=== PATIENT | female | born 1995 | race Caucasian/White ===

== ENCOUNTER 2023-07-25 12:51 | Emergency (ER) | payer OTHER, SELFPAY ==
[2023-07-25 12:59] VITALS: BP 110/74
[2023-07-25] MEDS: NSS 1000 IV (14:18)
[2023-07-25] MEDS: PEPCID 20 MG IV (14:18)
[2023-07-25 14:22] VITALS: BMI 18.1
[2023-07-25] MEDS: HALDOL 1 MG IV ×2 (14:29→16:55)
[2023-07-25 14:30] LABS: % Basophils 0.4 % (0-2); % Eosinophils 0.1 % (0-6); % Immature Granulocytes 0.4 % (0-0.5); % Lymphocytes 7.4 % (20.5-51.1); % Monocytes 2.9 % (1.7-9.3); % Neutrophils 88.8 % (42.2-75.2); Absolute Basophils 0.1 10^3/uL (0-0.2); Absolute Immature Granulocytes 0.1 10^3/uL (0-0.05); Absolute Monocytes 0.4 10^3/uL (0.1-0.6); Absolute Neutrophils 11.7 10^3/uL (1.4-6.5); Hematocrit 39.5 % (37.0-47.0); Hemoglobin 13.9 g/dL (12.0-16.0); Mean Corp Hgb Conc. 35.2 g/dL (33.0-37.0); Mean Platelet Volume 9.8 fL (7.4-10.4); Nucleated Red Blood Cells % 0 %; Platelet Count 301 10^3/uL (130-400); Red Blood Cell Count 4.34 10^6/uL (4.20-5.40); Red Cell Dist. Width 12.9 % (11.5-14.5); White Blood Cell Count 13.2 10^3/uL (4.8-10.8)
[2023-07-25 14:36] VITALS: BP 101/46
[2023-07-25 14:41] LABS: ALT (SGPT) 22 U/L (0-35); AST (SGOT) 22 U/L (14-36); Albumin 4.8 g/dl (3.5-5.0); Alkaline Phosphatase 65 U/L (38-126); Blood Urea Nitrogen 20 mg/dl (7-17); Carbon Dioxide 17 mmol/L (22-30); Chloride 110 mmol/L (98-107); Estimated Creatinine Clearance 104 ml/min; Glucose 111 mg/dl (70-99); Lactic Acid 1.4 mmol/L (0.7-2.0); Lipase 49 U/L (23-300); Potassium 3.9 mmol/L (3.5-5.1); Sodium 140 mmol/L (135-145); Total Bilirubin 0.8 mg/dl (0.2-1.3); Total Protein 7.7 g/dl (6.3-8.2); eGFR > 60.00
[2023-07-25 15:00] VITALS: BP 102/54
[2023-07-25 15:02] LABS: HCG, Serum Qualitative Screen Negative
--- NOTE | 2023-07-25 15:15 | ED.GENMED ---
History of Present Illness
General
Chief Complaint: Abdominal Pain
Source: patient
Exam Limitations: none
Time Seen by Provider: 07/25/23 13:32
Nursing documentation reviewed up to this point in time: agreed with
Travel History
Have you had any contact with someone who has COVID-19?: No
Do you have any symptoms of coronavirus? Fever > 100 degrees, chills, cough, shortness of breath, sore throat, loss of taste or smell, muscle aches, or headache?: No
History of Present Illness
History of Present Illness:
27-year-old female with past medical history of GERD anxiety presenting to the emergency department today with concerns of abdominal pain diffuse with vomiting over the past 3 days has been here several times for similar symptoms in the past.
Previously had an ovarian cyst with previous ultrasound. Denies any fevers changes in urination or changes in bowel movements.
Past History
Past History
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
ED Past Surgical History: Appendectomy
Social History
Tobacco: Smoker
Alcohol: Binge drinker
Drug: Marijuana
Personal: Single
Living: with family
Employment: Not employed
Family History
Family History: Other (Noncontributory)
Review of Systems
Review of Systems
Allergies reviewed?: Yes
All Other Systems: ROS reviewed and negative except as documented in HPI and ROS
Phy Exam
Physical Exam
Physical Exam:
GENERAL: Alert , in no apparent distress
EYE: pupils equal and reactive
NECK: Supple, no significant adenopathy.
ENT: o/p clr, mmm.
CARDIAC: Regular rate and rhythm .
LUNGS: Clear breath sounds bilaterally, no acute respiratory distress, no wheezes/rales/rhonchi
ABDOMEN: Vague diffuse abdominal pain no specific focal tenderness no peritoneal signs no guarding
NEUROLOGICAL: Alert and oriented, no focal neuro deficits
SKIN: Warm and dry, skin intact.
MUSCULOSKELETAL: No edema, well perfused.
PSYCH: Normal and appropriate interaction.
Course
Orders/Labs/Results
Orders:
Orders
07/25/23 13:42
CT Abd/Pel (IV only)-DH only Urgent
Comment:
Reason For Exam: diffuse abd pain vomiting
0.9% Sodium Chloride 1000 ml [Nss] 1,000 ml IV BOLUS
Famotidine [Pepcid] 20 mg IV NOW STA
Haloperidol Lactate [Haldol] 1 mg IV NOW STA
07/25/23 14:10
Complete Blood Count/With Diff Urgent
Comprehensive Metabolic Panel Urgent
HCG, Serum Qualitative Screen Urgent
Comment: ADD-ON
Lactic Acid Urgent
Lipase Urgent
07/25/23 14:33
Electrocardiogram (*1) Urgent
Reason for Study: QTc Monitoring
EKG- Treatment ONCE
07/25/23 14:49
Add On- LAB Urgent
Tests Added?: hcg
07/25/23 16:08
Haloperidol Lactate [Haldol] 1 mg IV NOW STA
Ondansetron Injectable [Zofran] 4 mg IV NOW STA
07/25/23 17:44
Urinalysis Reflex To Culture Urgent
Date Specimen was Collected: 07/25/23
Time Specimen was Collected: 16:49
Abnormal Lab Results
07/25/23
14:10
WBC 13.2 H 10^3/uL
(4.8-10.8)
MCH 32.0 H pg
(27.0-31.0)
Abs Immat Gran (auto) 0.1 H 10^3/uL
(0-0.05)
Absolute Neuts (auto) 11.7 H 10^3/uL
(1.4-6.5)
Absolute Lymphs (auto) 1.0 L 10^3/uL
(1.2-3.4)
Neutrophils % 88.8 H %
(42.2-75.2)
Lymphocytes % 7.4 L %
(20.5-51.1)
Chloride 110 H mmol/L
(98-107)
Carbon Dioxide 17 L mmol/L
(22-30)
BUN 20 H mg/dl
(7-17)
Creatinine 0.5 L mg/dL
(0.6-1.0)
Glucose 111 H mg/dl
(70-99)
07/25/23 14:10
07/25/23 14:10
Vital Signs
Initial and Last Documented VS:
Initial Vital Signs
Temp Pulse Resp BP Pulse Ox
98.0 F 120 16 110/74 98
07/25/23 12:59 07/25/23 12:59 07/25/23 12:59 07/25/23 12:59 07/25/23 12:59
Last Documented Vital Signs
Temp Pulse Resp BP Pulse Ox
98.6 F 108 16 108/56 98
07/25/23 17:55 07/25/23 17:55 07/25/23 17:55 07/25/23 17:55 07/25/23 17:55
MDM/Problems Addressed
MDM/Problems Addressed:
27-year-old female presenting to the emergency department today with concerns of diffuse abdominal pain vomiting over the past 3 days similar episodes many times in the past. Does consume marijuana daily initial heart rate elevated but improving
after receiving a liter of fluid otherwise vital signs are normal no fever has vague diffuse abdominal pain. Patient does admit to daily marijuana use concerning this was given Haldol did have some improvement of symptoms given fluids heart rate
improving into the 90s white blood cell count slightly elevated 13.2 otherwise labs showing findings consistent with likely dehydration was given a second liter additionally CT scan without emergent findings symptoms were controlled patient able to
tolerate by mouth. Concerning the patient stable for outpatient management advised close GI follow-up.
*Critical Care Note
Total Time (30-74mins, 75-104mins- exclusive of procedures): Not Applicable
ED Attending Note
-
Portions of this chart may have been created with voice recognition software.� Occasional wrong word or��sound alike� substitutions may have occurred due to the inherent limitations of voice recognition software.
Discharge Plan
Departure
Patient Disposition: Home (Routine Discharge)
Date of Disposition: 07/25/23
Time of Disposition: 18:20
Patient with high blood pressure during this ER visit?: No
Condition: Good
Covid-19: Not Applicable
Discharge Problem:
Abdominal pain, Vomiting
Instructions: Abdominal Pain
Prescriptions:
New
ondansetron 4 mg tablet,disintegrating
4 mg PO Q8H PRN (Reason: nausea and vomiting) Qty: 7 0RF
pantoprazole 20 mg tablet,delayed release (DR/EC)
20 mg PO BID 14 Days Qty: 28 0RF
No Action
ondansetron 4 mg tablet,disintegrating
4 mg PO TID PRN (Reason: nausea and vomiting) Qty: 20 0RF
Referrals:
Sheldon Chambers MD [Active] - Follow up in 5-7 days
NONE,* [Family Provider] -
Activity Restrictions/Additional Instructions:
You came to emergency department today with concerns of vomiting. No emergent findings here please follow closely with GI. return to the emergency department any worsening, new or concerning symptoms.
Interventions
Interventions:
*Risk Screen - Suicide Last Done: 07/25/23 14:20
*General Assessment Last Done: 07/25/23 14:20
*Neglect/Abuse Screening Last Done: 07/25/23 14:20
ED- Fall Risk Assessment Last Done: 07/25/23 14:20
*ED COVID-19 Vaccine History Last Done: 07/25/23 12:59
XB-Ycxdem-Zdlhzispxf Assessment Last Done: 07/25/23 14:30
[2023-07-25] MEDS: ZOFRAN 4 MG IV (16:54)
[2023-07-25 17:55] VITALS: BP 108/56
== END 2023-07-25 19:01 | disposition home or self-care (01) ==
LOC: EMR 12:51
PROVIDERS: Physician Assistant; EMERGENCY PHYSICIAN Emergency Medicine
DX: R10.9 Unspecified abdominal pain (principal); K21.9 Gastro-esophageal reflux disease without esophagitis; F41.9 Anxiety disorder, unspecified; R11.2 Nausea with vomiting, unspecified; F10.10 Alcohol abuse, uncomplicated; L40.9 Psoriasis, unspecified; F17.200 Nicotine dependence, unspecified, uncomplicated; Z79.899 Other long term (current) drug therapy; Z87.19 Personal history of other diseases of the digestive system; Z90.49 Acquired absence of other specified parts of digestive tract
CPT/HCPCS: 99284; 96374; 96375; 96376; 96361; 74177; 80053; 83605; 83690; 84703; 85025; 93005; Q9967

== ENCOUNTER → 2024-01-03 06:30 | Day surgery (SDC) | payer OTHER, SELFPAY | LOC: GI 06:30 | PROVIDERS: ATTENDING PHYSICIAN Internal Medicine Gastroenterology | DX: K31.89 Other diseases of stomach and duodenum (principal); R10.13 Epigastric pain; R68.81 Early satiety; R63.4 Abnormal weight loss; K29.50 Unspecified chronic gastritis without bleeding | CPT/HCPCS: 43239; 88305; 88342 ==

== ENCOUNTER → 2024-01-11 06:21 | Day surgery (SDC) | payer OTHER, SELFPAY | LOC: GI 06:21 | PROVIDERS: ATTENDING PHYSICIAN Internal Medicine Gastroenterology | DX: K64.8 Other hemorrhoids (principal); R63.4 Abnormal weight loss | CPT/HCPCS: 45378 ==

== ENCOUNTER 2024-03-17 00:39 | Emergency (ER) | payer OTHER, SELFPAY ==
[2024-03-17 00:47] VITALS: BP 121/82
--- NOTE | 2024-03-17 01:22 | ED.GENMED ---
History of Present Illness
General
Chief Complaint: Abdominal Symptoms
Source: patient
Exam Limitations: none
Time Seen by Provider: 03/17/24 01:08
Nursing documentation reviewed up to this point in time: agreed with
History of Present Illness
History of Present Illness:
Patient with history of chronic intermittent abdominal pain, of unknown etiology, presents to ED secondary to recurrent worsening abdominal pain associated with multiple episodes of nausea vomiting over the past 3 days. Patient has been evaluated
on multiple occasions for similar complaint, including GI evaluation over the summer, requiring endoscopy and colonoscopy, which were 'normal'. Patient was advised to follow-up with her primary care physician, including potential endocrinology
evaluation, but has not been able to do so, as there is currently waiting list to see her primary care physician. In the meantime, patient states that she has been dealing with ongoing intermittent abdominal pain on her own, with intermittent use
of Zofran for nausea sensation. Patient has had significant weight loss over the years. Abdominal pain described as crampy, nonradiating, without any alleviating or exacerbating factors. Denies fever or chills. Denies change in bowel habits.
Denies recent change in diet or medications. Patient also reports irregular menstrual cycle, which has also been chronic.
Past History
Past History
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
ED Past Surgical History: Appendectomy
Social History
Tobacco: Smoker
Alcohol: Binge drinker
Drug: Marijuana
Personal: Single
Living: with family
Employment: Not employed
Family History
Family History: Other (Noncontributory)
Review of Systems
Review of Systems
Allergies reviewed?: Yes
All Other Systems: ROS reviewed and negative except as documented in HPI and ROS
Constitutional: Reports no symptoms
EENT: Reports no symptoms
Respiratory: Reports no symptoms
Cardiac: Reports no symptoms
ABD/GI: Reports abdominal pain, nausea and vomiting; Denies diarrhea or constipated
: Reports no symptoms
Musculoskeletal: Reports no symptoms
Skin: Reports no symptoms
Neurological: Reports no symptoms
Phy Exam
Physical Exam
Physical Exam:
Physical Exam
General: mild distress, not acutely ill. afebrile. thin appearing.
Head: nc/at. eomi
Neck: supple. no meningeal signs.
Heart: s1/s2 regular rate and rhythm, no murmur. equal radial pulses.
Lungs: no acute respiratory distress. clear bilaterally
Abdomen: normal bowel sounds. not tender. no distention
Neuro: alert and oriented. no focal neurological deficits
Skin: no rash
Psychiatric: well kept. interactive and cooperative
Extremities: no edema. no calf tenderness.
Course
Orders/Labs/Results
Orders:
Orders
03/17/24 01:17
Ketorolac [Toradol] 15 mg IV NOW STA
Pantoprazole [Protonix IV] 40 mg IV NOW STA
Test Result ONCE
CR Obstruct Series W/pa Chest Urgent
Comment:
Reason For Exam: abdominal pain
03/17/24 01:18
0.9% Sodium Chloride 1000 ml [Nss] 1,000 ml IV BOLUS
03/17/24 01:33
Diphenhydramine [Benadryl] 12.5 mg IV NOW STA
Metoclopramide [Reglan] 10 mg IV NOW STA
03/17/24 01:34
Complete Blood Count/With Diff Urgent
Comprehensive Metabolic Panel Urgent
HCG, Serum Qualitative Screen Urgent
Lipase Urgent
Magnesium Urgent
TSH Urgent
Urinalysis Reflex To Culture Urgent
Date Specimen was Collected: 03/17/24
Time Specimen was Collected: 01:30
Urine Microscopic Reflex Cult Urgent
Abnormal Lab Results
03/17/24
01:34
RBC 4.07 L 10^6/uL
(4.20-5.40)
Hct 36.8 L %
(37.0-47.0)
MCH 31.9 H pg
(27.0-31.0)
Creatinine 0.5 L mg/dL
(0.6-1.0)
Urine Ketones Trace A
(Negative)
Urine Bilirubin 1+ A
(Negative)
Urine Urobilinogen 2+ A
(Neg - 1+)
Leukocyte Esterase Rfl Trace A
(Negative)
Urine RBC 3-6 A /HPF
(0-2)
Urine Bacteria (Reflex) Few A
(Negative)
03/17/24 01:34
03/17/24 01:34
Vital Signs
Initial and Last Documented VS:
Initial Vital Signs
Temp Pulse Resp BP Pulse Ox
98.1 F 107 18 121/82 99
03/17/24 00:47 03/17/24 00:47 03/17/24 00:47 03/17/24 00:47 03/17/24 00:47
Last Documented Vital Signs
Temp Pulse Resp BP Pulse Ox
98.1 F 77 18 93/56 97
03/17/24 00:47 03/17/24 03:00 03/17/24 00:47 03/17/24 03:00 03/17/24 03:00
MDM/Problems Addressed
MDM/Problems Addressed:
Patient reports mild improvement symptoms after treatment. Patient remains otherwise afebrile, hemodynamically stable and nontoxic-appearing. As patient's presentation is concerning, despite his chronicity, especially with significant weight loss,
patient will be referred to family practice medicine residency clinic, as she currently is unable to see her primary care physician. Patient expressed understanding at time of discharge.
*Critical Care Note
Total Time (30-74mins, 75-104mins- exclusive of procedures): Not Applicable
ED Attending Note
-
Portions of this chart may have been created with voice recognition software.� Occasional wrong word or��sound alike� substitutions may have occurred due to the inherent limitations of voice recognition software.
Discharge Plan
Departure
Patient Disposition: Home (Routine Discharge)
Date of Disposition: 03/17/24
Time of Disposition: 02:34
Patient with high blood pressure during this ER visit?: Yes
Condition: Good
Discharge Problem:
Abdominal pain
Instructions: Abdominal Pain
Prescriptions:
New
metoclopramide HCl [Reglan] 10 mg tablet
10 mg PO Q8HPRN PRN (Reason: nausea and vomiting) Qty: 20 0RF
No Action
ondansetron 4 mg tablet,disintegrating
4 mg PO TID PRN (Reason: nausea and vomiting) Qty: 20 0RF
ondansetron 4 mg tablet,disintegrating
4 mg PO Q8H PRN (Reason: nausea and vomiting) Qty: 7 0RF
pantoprazole 20 mg tablet,delayed release (DR/EC)
20 mg PO BID 14 Days Qty: 28 0RF
Referrals:
[facility] [Provider Group]
NONE,* [Family Provider] -
Activity Restrictions/Additional Instructions:
As discussed, please follow-up with referred family practice residency clinic for further evaluation and treatment. Your prescription has been sent electronically to [facility] pharmacy in [place].
Interventions
Interventions:
*Risk Screen - Suicide Last Done: 03/17/24 00:43
*General Assessment Last Done: 03/17/24 02:00
*Neglect/Abuse Screening Last Done: 03/17/24 00:43
ED- Fall Risk Assessment Last Done: 03/17/24 02:00
*ED COVID-19 Vaccine History Last Done: 03/17/24 03:25
*Nursing Disposition Last Done: 03/17/24 03:25
HK-Qieyra-Cwxmdvaggw Assessment Last Done: 03/17/24 02:00
Discharge Date and Time
Discharge Date/Time: 03/17/24 03:25
Print Language: MAORI
[2024-03-17 01:30] VITALS: BP 99/65
[2024-03-17] MEDS: TORADOL 15 MG IV (01:44)
[2024-03-17] MEDS: PROTONIX IV 40 MG IV (01:44)
[2024-03-17] MEDS: NSS 1000 IV (01:45)
[2024-03-17 01:46] LABS: Urine Albumin Negative (Neg - Trace); Urine Bilirubin 1+ (Negative); Urine Character Clear (Clear); Urine Glucose Negative (Negative); Urine Ketone Trace (Negative); Urine Leukocyte Trace (Negative); Urine Nitrite Negative (Negative); Urine Occult Blood Negative (Negative); Urine Urobilinogen 2+ (Neg - 1+)
[2024-03-17 01:47] LABS: Urine Color Amber
[2024-03-17 01:52] LABS: % Basophils 0.6 % (0-2); % Eosinophils 4.6 % (0-6); % Immature Granulocytes 0.2 % (0-0.5); % Lymphocytes 28.2 % (20.5-51.1); % Neutrophils 60.4 % (42.2-75.2); Absolute Basophils 0.1 10^3/uL (0-0.2); Absolute Eosinophils 0.4 10^3/uL (0-0.7); Absolute Lymphocytes 2.4 10^3/uL (1.2-3.4); Absolute Monocytes 0.5 10^3/uL (0.1-0.6); Absolute Neutrophils 5.1 10^3/uL (1.4-6.5); Hematocrit 36.8 % (37.0-47.0); Mean Corp Hgb Conc. 35.3 g/dL (33.0-37.0); Mean Corpuscular Hgb 31.9 pg (27.0-31.0); Mean Corpuscular Volume 90.4 fL (81.0-99.0); Mean Platelet Volume 9.6 fL (7.4-10.4); Nucleated Red Blood Cells % 0 %; Platelet Count 221 10^3/uL (130-400); Red Blood Cell Count 4.07 10^6/uL (4.20-5.40); White Blood Cell Count 8.4 10^3/uL (4.8-10.8)
[2024-03-17] MEDS: BENADRYL 12.5 MG IV (01:52)
[2024-03-17 01:53] LABS: Urine Squamous Cell >30 /LPF (Few)
[2024-03-17] MEDS: REGLAN 10 MG IV (01:53)
[2024-03-17 01:54] LABS: Urine Mucus Many
[2024-03-17 01:55] LABS: Urine Bacteria Few (Negative)
[2024-03-17 02:00] VITALS: BP 77/46
[2024-03-17 02:03] LABS: HCG, Serum Qualitative Screen Negative
[2024-03-17 02:05] LABS: ALT (SGPT) 20 U/L (0-35); AST (SGOT) 24 U/L (14-36); Albumin 4.4 g/dl (3.5-5.0); Alkaline Phosphatase 41 U/L (38-126); Blood Urea Nitrogen 12 mg/dl (7-17); Calcium 9.5 mg/dl (8.4-10.2); Carbon Dioxide 22 mmol/L (22-30); Chloride 106 mmol/L (98-107); Glucose 83 mg/dl (70-99); Magnesium 1.9 mg/dl (1.6-2.3); Sodium 142 mmol/L (135-145); Total Bilirubin 0.7 mg/dl (0.2-1.3); eGFR > 60.00
[2024-03-17 02:19] LABS: Lipase 39 U/L (23-300)
[2024-03-17 02:39] LABS: TSH 1.38 uIU/ml (0.47-4.68)
[2024-03-17 03:00] VITALS: BP 93/56
== END 2024-03-17 03:25 | disposition home or self-care (01) ==
LOC: EMR 00:39
PROVIDERS: EMERGENCY PHYSICIAN Emergency Medicine
DX: R10.9 Unspecified abdominal pain (principal); R11.2 Nausea with vomiting, unspecified; F10.10 Alcohol abuse, uncomplicated; F17.200 Nicotine dependence, unspecified, uncomplicated; Z87.19 Personal history of other diseases of the digestive system; Z90.49 Acquired absence of other specified parts of digestive tract
CPT/HCPCS: 99283; 96374; 96375; 96361; 74022; 80053; 81003; 81015; 83690; 83735; 84443; 84703; 85025

== ENCOUNTER → 2024-04-04 18:26 | Outpatient (REF) | payer OTHER, SELFPAY | LOC: MRI 18:26 | DX: R10.9 Unspecified abdominal pain (principal); R63.4 Abnormal weight loss; D21.9 Benign neoplasm of connective and other soft tissue, unspecified; N83.292 Other ovarian cyst, left side | CPT/HCPCS: 72197; A9575 ==

== ENCOUNTER → 2024-04-19 18:00 | Outpatient (REF) | payer OTHER, SELFPAY | LOC: MRI 18:00 | DX: R10.9 Unspecified abdominal pain (principal); R63.4 Abnormal weight loss; D21.9 Benign neoplasm of connective and other soft tissue, unspecified; N83.292 Other ovarian cyst, left side | CPT/HCPCS: 74183; A9575 ==

== ENCOUNTER 2024-10-08 21:06 | Emergency (ER) | payer OTHER, SELFPAY ==
[2024-10-08 21:08] VITALS: BP 102/80
--- NOTE | 2024-10-08 21:55 | ED.GENMED ---
History of Present Illness
General
Chief Complaint: Abdominal Pain
Source: patient and spouse
Exam Limitations: none
Time Seen by Provider: 10/08/24 21:22
Nursing documentation reviewed up to this point in time: agreed with
History of Present Illness
History of Present Illness:
28-year-old female past medical history of ongoing abdominal discomfort for many months and weight loss. Claims that it has been significant throughout the day today. She has had frequent nausea vomiting and trouble gaining any weight secondary to
decreased oral intake. She does use marijuana multiple times daily.
Past History
Past History
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
ED Past Surgical History: Appendectomy
Social History
Tobacco: Smoker
Alcohol: Binge drinker
Drug: Marijuana
Personal: Single
Living: with family
Employment: Not employed
Family History
Family History: Other (Noncontributory)
Review of Systems
Review of Systems
Allergies reviewed?: Yes
All Other Systems: ROS reviewed and negative except as documented in HPI and ROS
Phy Exam
Physical Exam
Physical Exam:
GENERAL: Alert , in no apparent distress
EYE: pupils equal and reactive
NECK: Supple, no significant adenopathy.
ENT: o/p clr, mmm.
CARDIAC: Regular rate and rhythm .
LUNGS: Clear breath sounds bilaterally, no acute respiratory distress, no wheezes/rales/rhonchi
ABDOMEN: Soft, without focal tenderness, no r/g, no cvat
NEUROLOGICAL: Alert and oriented, no focal neuro deficits
SKIN: Warm and dry, skin intact.
MUSCULOSKELETAL: No edema, well perfused.
PSYCH: Normal and appropriate interaction.
Course
Orders/Labs/Results
Orders:
Orders
10/08/24 21:53
0.9% Sodium Chloride 1000 ml [Nss] 1,000 ml IV BOLUS
Haloperidol Lactate [Haldol] 2 mg IV NOW STA
Test Result ONCE
10/08/24 22:05
Complete Blood Count/With Diff Urgent
Comprehensive Metabolic Panel Urgent
HCG, Serum Qualitative Screen Urgent
Lipase Urgent
10/08/24 22:12
Electrocardiogram (*1) Urgent
Reason for Study: QTc Monitoring
EKG- Treatment ONCE
10/08/24 23:22
Urinalysis Reflex To Culture Urgent
Date Specimen was Collected: 10/08/24
Time Specimen was Collected: 23:19
Urine Drug Abuse Screen Urgent
Date Specimen was Collected: 10/08/24
Time Specimen was Collected: 23:19
Urine Microscopic Reflex Cult Urgent
Urine Culture Urgent
JANNIE Source: U
Specimen Description:
Date Specimen was Collected: 10/08/24
Time Specimen was Collected: 23:19
10/08/24 23:26
Dicyclomine HCl [Bentyl] 20 mg IM NOW STA
Famotidine [Pepcid] 20 mg IV NOW STA
Ketorolac [Toradol] 15 mg IV NOW STA
10/08/24 23:27
Ondansetron Injectable [Zofran] 4 mg IV NOW STA
10/08/24 23:30
0.9% Sodium Chloride 1000 ml [Nss] 1,000 ml IV BOLUS
10/08/24 23:47
Add On- LAB Urgent
Tests Added?: urine drugs of abuse screen
10/09/24 00:20
diazePAM [Valium Injection] 2 mg IV NOW STA
Abnormal Lab Results
10/08/24 10/08/24
22:05 23:22
RBC 3.90 L 10^6/uL
(4.20-5.40)
Hct 36.2 L %
(37.0-47.0)
MCH 32.3 H pg
(27.0-31.0)
Absolute Neuts (auto) 6.9 H 10^3/uL
(1.4-6.5)
Chloride 110 H mmol/L
(98-107)
Creatinine 0.5 L mg/dL
(0.6-1.0)
Urine Ketones 1+ A
(Negative)
Leukocyte Esterase Rfl 2+ A
(Negative)
Urine RBC 3-6 A /HPF
(0-2)
Urine Bacteria (Reflex) Many A
(Negative)
Urine Albumin (Reflex) 1+ A
(Neg - Trace)
U Marijuana (THC) Screen Positive H
(Negative)
10/08/24 22:05
10/08/24 22:05
Vital Signs
Initial and Last Documented VS:
Initial Vital Signs
Temp Pulse Resp BP Pulse Ox
98.6 F 93 16 102/80 99
10/08/24 21:08 10/08/24 21:08 10/08/24 21:08 10/08/24 21:08 10/08/24 21:08
Last Documented Vital Signs
Temp Pulse Resp BP Pulse Ox
98.6 F 80 14 121/76 98
10/08/24 21:08 10/09/24 00:00 10/09/24 00:00 10/09/24 00:00 10/09/24 00:00
MDM/Problems Addressed
MDM/Problems Addressed:
28-year-old female presenting to the emergency department today with concerns of ongoing abdominal pain. Has had some degree of abdominal pain for at least 10 years. Today is slightly worse than usual mainly with abdominal cramping also some
bodyaches some intermittent headache and trouble tolerating by mouth. Had very similar symptoms multiple times in the past here in the ER. Also has had multiple GI workups without any findings. Here workup without any evidence of emergent process
advised for close outpatient follow-up. Return precautions given.
*Critical Care Note
Total Time (30-74mins, 75-104mins- exclusive of procedures): Not Applicable
ED Attending Note
-
Portions of this chart may have been created with voice recognition software.� Occasional wrong word or��sound alike� substitutions may have occurred due to the inherent limitations of voice recognition software.
Discharge Plan
Departure
Patient Disposition: Home (Routine Discharge)
Date of Disposition: 10/09/24
Time of Disposition: 00:31
Patient with high blood pressure during this ER visit?: No
Condition: Good
Covid-19: Not Applicable
Discharge Problem:
Abdominal pain
Instructions: Abdominal Pain
Prescriptions:
New
metoclopramide HCl [Reglan] 10 mg tablet
10 mg PO Q6H PRN (Reason: abdominal pain) Qty: 10 0RF
No Action
Trever Multivitamin
1 gummy PO DAILY
Trever Probiotic
1 tab PO DAILY
Referrals:
Kamran Plasencia MD [Family Provider, Gastroenterology]
Activity Restrictions/Additional Instructions:
You came to the emergency department today with concerns of abdominal pain. Here you had a reassuring assessment without emergent findings. Please follow-up very closely with your primary care doctor and GI for further assessment. Return for any
worsening, new or concerning symptoms.
Interventions
Interventions:
*Risk Screen - Suicide Last Done: 10/08/24 22:23
*General Assessment Last Done: 10/08/24 22:12
*Neglect/Abuse Screening Last Done: 10/08/24 22:23
*ED- Fall Risk Assessment Last Done: 10/08/24 22:12
*ED COVID-19 Vaccine History Last Done: 10/08/24 22:12
*Nursing Disposition Last Done: 10/09/24 01:02
WS-Ttfjoq-Xlcjvopeih Assessment Last Done: 10/08/24 22:15
Discharge Date and Time
Discharge Date/Time: 10/09/24 01:02
Print Language: NEPALI
[2024-10-08] MEDS: NSS 1000 IV ×2 (22:10→23:30)
[2024-10-08] MEDS: HALDOL 2 MG IV (22:10)
[2024-10-08 22:12] VITALS: BMI 14.8
[2024-10-08 22:14] VITALS: BP 96/59
[2024-10-08 22:16] LABS: % Basophils 0.5 % (0-2); % Eosinophils 3.5 % (0-6); % Immature Granulocytes 0.3 % (0-0.5); % Lymphocytes 25.6 % (20.5-51.1); % Monocytes 5.5 % (1.7-9.3); % Neutrophils 64.6 % (42.2-75.2); Absolute Basophils 0.1 10^3/uL (0-0.2); Absolute Eosinophils 0.4 10^3/uL (0-0.7); Absolute Lymphocytes 2.7 10^3/uL (1.2-3.4); Absolute Monocytes 0.6 10^3/uL (0.1-0.6); Absolute Neutrophils 6.9 10^3/uL (1.4-6.5); Hematocrit 36.2 % (37.0-47.0); Hemoglobin 12.6 g/dL (12.0-16.0); Mean Corp Hgb Conc. 34.8 g/dL (33.0-37.0); Mean Corpuscular Hgb 32.3 pg (27.0-31.0); Mean Corpuscular Volume 92.8 fL (81.0-99.0); Mean Platelet Volume 9.4 fL (7.4-10.4); Nucleated Red Blood Cells % 0 %; Platelet Count 197 10^3/uL (130-400); Red Cell Dist. Width 13.2 % (11.5-14.5); White Blood Cell Count 10.6 10^3/uL (4.8-10.8)
[2024-10-08 22:29] LABS: HCG, Serum Qualitative Screen Negative
[2024-10-08 22:31] LABS: ALT (SGPT) 20 U/L (0-35); AST (SGOT) 20 U/L (14-36); Albumin 4.1 g/dl (3.5-5.0); Alkaline Phosphatase 49 U/L (38-126); Blood Urea Nitrogen 12 mg/dl (7-17); Calcium 8.9 mg/dl (8.4-10.2); Carbon Dioxide 24 mmol/L (22-30); Chloride 110 mmol/L (98-107); Estimated Creatinine Clearance 84 ml/min; Glucose 85 mg/dl (70-99); Lipase 40 U/L (23-300); Potassium 3.9 mmol/L (3.5-5.1); Sodium 136 mmol/L (135-145); Total Bilirubin 0.6 mg/dl (0.2-1.3); Total Protein 6.5 g/dl (6.3-8.2); eGFR > 60.00
[2024-10-08 23:28] LABS: Urine Albumin 1+ (Neg - Trace); Urine Bilirubin Negative (Negative); Urine Character Clear (Clear); Urine Color Amber; Urine Glucose Negative (Negative); Urine Ketone 1+ (Negative); Urine Leukocyte 2+ (Negative); Urine Nitrite Negative (Negative); Urine Occult Blood Negative (Negative); Urine Specific Gravity 1.025 (<1.030); Urine Urobilinogen 1+ (Neg - 1+)
[2024-10-08 23:31] VITALS: BP 92/60
[2024-10-08] MEDS: ZOFRAN 4 MG IV (23:33)
[2024-10-08] MEDS: PEPCID 20 MG IV (23:35)
[2024-10-08] MEDS: TORADOL 15 MG IV (23:39)
[2024-10-08] MEDS: BENTYL 20 MG IM (23:42)
--- NOTE | 2024-10-08 23:51 | EDRN ---
First L NS IVF had approximately 400ml left to infuse. Raised on pole to facilitate infusion. Haydee PARIKH was in to talk with pt about plan of care and gave verbal order for second L NS bolus which was hung along with first bolus that was
finishing. Pt complains of pain mainly in the right side of her abdomen and some in the middle that radiates into her back. Nausea and vomiting, continued weight loss and decreased PO intake. Pt uses marijuana few times daily. No
fever/chills/cough
[2024-10-09] VITALS: BP 121/76
[2024-10-09 00:22] LABS: Amphetamines Negative (Negative); Barbiturates Negative (Negative); Benzodiazepines Negative (Negative); Buprenorphine Negative (Negative); Cocaine Negative (Negative); Marijuana Positive (Negative); Methadone Negative (Negative); Methamphetamines Negative (Negative); Opiates Negative (Negative); Phencyclidine Negative (Negative); Tricyclic Antidepressants Negative (Negative)
[2024-10-09] MEDS: VALIUM INJECTION 2 MG IV (00:40)
[2024-10-09 01:07] LABS: Urine Amorphous Seen; Urine Mucus Many; Urine Squamous Cell >30 /LPF (Few)
[2024-10-09 01:08] LABS: Urine Bacteria Many (Negative)
== END 2024-10-09 01:02 | disposition home or self-care (01) ==
LOC: EMR 21:06
PROVIDERS: Physician Assistant; EMERGENCY PHYSICIAN Emergency Medicine; FAMILY PHYSICIAN Internal Medicine Gastroenterology
DX: R10.9 Unspecified abdominal pain (principal); R11.2 Nausea with vomiting, unspecified; R51.9 Headache, unspecified; F12.90 Cannabis use, unspecified, uncomplicated; F17.200 Nicotine dependence, unspecified, uncomplicated; Z90.49 Acquired absence of other specified parts of digestive tract
CPT/HCPCS: 96374; 96375; 96372; 96361; 99284; 80053; 80306; 81003; 81015; 83690; 84703; 85025; 87086; 93005

== ENCOUNTER → 2025-01-16 07:09 | Outpatient (REF) | payer OTHER, SELFPAY | LOC: PNTC 07:09 | PROVIDERS: ATTENDING PHYSICIAN Student in an Organized Health Care Education/Training Program | DX: Z36.0 Encounter for antenatal screening for chromosomal anomalies (principal); Z36.82 Encounter for antenatal screening for nuchal translucency; O36.80X0 Pregnancy with inconclusive fetal viability, not applicable or unspecified | CPT/HCPCS: 36415; 76801; 76813 ==

== ENCOUNTER → 2025-02-01 09:36 | Outpatient (REF) | payer OTHER, SELFPAY | LOC: PNTC 09:36 | PROVIDERS: ATTENDING PHYSICIAN Obstetrics & Gynecology | DX: Z36.0 Encounter for antenatal screening for chromosomal anomalies (principal) | CPT/HCPCS: 76805 ==

== ENCOUNTER 2025-02-12 09:43 | Emergency (ER) | payer OTHER, SELFPAY ==
[2025-02-12 09:48] VITALS: BP 121/79
[2025-02-12 11:48] VITALS: BP 98/61
[2025-02-12 11:53] VITALS: BMI 18.8
--- NOTE | 2025-02-12 12:05 | EDRN ---
Received patient on stretcher with c/o constipation for the past month. Patient stated that she has been taking Colace. Patient stated that she's 18 weeks and was not sure what else she can take. Patient stated that she developed pain this
morning while she was trying to have a BM.
--- NOTE | 2025-02-12 13:35 | ED.GENMED ---
History of Present Illness
General
Chief Complaint: Bowel Problem
Source: patient
Time Seen by Provider: 02/12/25 12:53
History of Present Illness
History of Present Illness:
29-year-old female with past medical history of GERD, anxiety and panic disorder presenting to the emergency department for evaluation of constipation that she notes is a chronic issue for her, no relief with twice daily Colace, patient concerned
because she has 18 weeks and was concerned that by straining she might be causing complication with her . She reportedly saw GI for this years ago but they did not feel that this issue needed to be addressed and patient never
followed back up with GI again. She is denying any current pain, fevers, urinary symptoms, melena or hematochezia. She is taking vitamins with iron supplementation presently. Denies any vaginal bleeding or discharge. Currently following
with [facility].
Past History
Past History
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
ED Past Surgical History: Appendectomy
Social History
Tobacco: Smoker
Alcohol: Former
Drug: Marijuana
Personal: Single
Living: with family
Employment: Not employed
Family History
Family History: Other (Noncontributory)
Review of Systems
Review of Systems
All Other Systems: ROS reviewed and negative except as documented in HPI and ROS
Phy Exam
Physical Exam
Physical Exam:
GENERAL: Alert , in no apparent distress
EYE: clear conjunctiva b/l
HEAD: NCAT
ENT: mmm.
CARDIAC: Regular rate and rhythm .
LUNGS: Clear breath sounds bilaterally, no acute respiratory distress, no wheezes/rales/rhonchi
ABDOMEN: Soft, without focal tenderness, no r/g, no cvat, normoactive bowel sounds
NEUROLOGICAL: Alert and oriented
SKIN: Warm and dry, skin intact.
MUSCULOSKELETAL:well perfused.
PSYCH: Normal and appropriate interaction.
Scores
Heart Failure Risk
Heart Failure Risk Score: Not Applicable
Heart Score for Chest Pain Patients
STEMI patient?: Not applicable
Withdrawal Assessment of Alcohol
Withdrawal Assessment Completed?: Not applicable
Course
Orders/Labs/Results
Orders:
Orders
02/12/25 13:15
Heart Tones ONCE
Vital Signs
Initial and Last Documented VS:
Initial Vital Signs
Temp Pulse Resp BP Pulse Ox
98.2 F 80 18 121/79 100
02/12/25 09:48 02/12/25 09:48 02/12/25 09:48 02/12/25 09:48 02/12/25 09:48
Last Documented Vital Signs
Temp Pulse Resp BP Pulse Ox
98.2 F 82 14 98/61 100
02/12/25 09:48 02/12/25 11:48 02/12/25 11:48 02/12/25 11:48 02/12/25 13:36
MDM/Problems Addressed
Differential Diagnosis Includes:
Functional constipation
Fecal impaction
Bowel obstruction
Medication side effects
MDM/Problems Addressed:
29-year-old female presenting to the ER for evaluation of constipation. Patient states this been ongoing issue years, does not follow with any long-term providers for this. Takes Colace but has not had relief. Patient main concern was making sure
her was okay. Denies any related concerns. Will check heart tones. I did offer medication here however patient states she would prefer to perform sqex-dsx-tuapppk measures at home. Will send prescription for MiraLAX. I
strongly encourage close follow-up with GI as well as to notify her [facility] longstanding constipation issues
*Pulse Oximetry
SaO2: 100
Oxygen Mode of Delivery: Room air
Patient hypoxic: no
*Critical Care Note
Total Time (30-74mins, 75-104mins- exclusive of procedures): Not Applicable
ED Attending Note
-
Portions of this chart may have been created with voice recognition software.� Occasional wrong word or��sound alike� substitutions may have occurred due to the inherent limitations of voice recognition software.
Discharge Plan
Departure
Patient Disposition: Home (Routine Discharge)
Date of Disposition: 02/12/25
Time of Disposition: 13:35
Patient with high blood pressure during this ER visit?: No
Discharge Problem:
Constipation
Instructions: Constipation, Adult (DC)
Prescriptions:
New
polyethylene glycol 3350 [Miralax] 17 gram/dose powder
17 g PO ONCE Qty: 238 0RF
No Action
Trever Multivitamin
1 gummy PO DAILY
Trever Probiotic
1 tab PO DAILY
metoclopramide HCl [Reglan] 10 mg tablet
10 mg PO Q6H PRN (Reason: abdominal pain) Qty: 10 0RF
Referrals:
Masha Rai MD, Resident [Family Provider, General]
Interventions
Interventions:
*Risk Screen - Suicide Last Done: 02/12/25 09:48
*General Assessment Last Done: 02/12/25 09:48
*Neglect/Abuse Screening Last Done: 02/12/25 09:48
*ED- Fall Risk Assessment Last Done: 02/12/25 11:53
*ED COVID-19 Vaccine History Last Done: 02/12/25 11:53
*ED Influenza Vaccine History Last Done: 02/12/25 11:53
*Nursing Disposition Last Done: 02/12/25 14:11
SH-Zbzdxe-Osumxzneav Assessment Last Done: 02/12/25 11:53
Discharge Date and Time
Print Language: BOLIVIAN
== END 2025-02-12 14:11 | disposition home or self-care (01) ==
LOC: EMR 09:43
PROVIDERS: EMERGENCY PHYSICIAN Student in an Organized Health Care Education/Training Program
DX: O99.612 Diseases of the digestive system complicating pregnancy, second trimester (principal); K59.00 Constipation, unspecified; K21.9 Gastro-esophageal reflux disease without esophagitis; O99.342 Other mental disorders complicating pregnancy, second trimester; F41.9 Anxiety disorder, unspecified; F41.0 Panic disorder [episodic paroxysmal anxiety]; O99.712 Diseases of the skin and subcutaneous tissue complicating pregnancy, second trimester; L40.9 Psoriasis, unspecified; O99.332 Smoking (tobacco) complicating pregnancy, second trimester; F17.200 Nicotine dependence, unspecified, uncomplicated; Z3A.18 18 weeks gestation of pregnancy
CPT/HCPCS: 99282